=== PATIENT | female | born 1965 | race Caucasian/White ===

== ENCOUNTER → 2017-02-17 | Outpatient (CLI) | payer OTHER | LOC: RAD 17:12 | DX: M47.816 Spondylosis without myelopathy or radiculopathy, lumbar region (principal); M54.30 Sciatica, unspecified side; N20.0 Calculus of kidney; M54.9 Dorsalgia, unspecified ==

== ENCOUNTER → 2019-08-08 | Outpatient (CLI) | payer OTHER | LOC: MRI 08:58 | DX: M47.816 Spondylosis without myelopathy or radiculopathy, lumbar region (principal); M51.26 Other intervertebral disc displacement, lumbar region; M48.061 Spinal stenosis, lumbar region without neurogenic claudication; M48.07 Spinal stenosis, lumbosacral region ==

== ENCOUNTER → 2019-08-16 | Outpatient (CLI) | payer OTHER ==
[~2019-08-16] VITALS: Ht 167.6 cm; Wt 80.7 kg
[~2019-08-16] MED LIST: IBUPROFEN 200200 M1 PO; LYRICA 50 MG50 MG PO; NORCO 5-325 TA1 EAC1 PO
[2019-08-16 14:27] VITALS: BP 126/77
--- NOTE | 2019-08-16 14:34 | NUR ---
Pain Clinic Assessment: 1. History of Osteoarthritis: SPINE History of Rheumatoid Arthritis: Not Applicable 2. Height: 5 ft. 6 in. 167.6 cm. Weight: 178.0 lb. oz. 80.740 kg. Patient's BMI: 28.7 3. Vital Signs: BP: 126/77 Pulse: 88 Resp: 16 Temp: 02 Sat: 100 ECG Mon: 4. Pain Intensity: 7 5. Fall Risk: Dizziness: N Needs help standing or walking: N Fallen in the last 3 months: Y Fall risk comments: 6. Patient on Blood Thinner: None 7. History of Hypertension: N 8. Opioid Therapy greater than 6 weeks: N Opiate Contract Signed: 9. Risk Assessment Tool Provided: 0-low 10. Functional Assessment Tool: 11. Recreational Drug Use: Never Drug Type: Tobacco Use: Never Smoker Tobacco Type: Amount or Packs/day: How Many Years: Alcohol Use: Yes Frequency: Weekly Quant: 1
--- NOTE | 2019-08-23 07:46 | HPC ---
[facility] [address] [address] PAIN MANAGEMENT CONSULTATION Name: CHARLY GILES Room #: REG Kirt Ryder#: [id number] Admission: 08/16/19 Attend Phys: Cliff Rucker DO Discharge: Date of : 63 Report #: [id number] THIS REPORT FOR: //name// CC: Cliff Hodges DATE OF SERVICE: 08/16/2019 CHIEF COMPLAINT: Low back pain, right lower extremity pain with paresthesias. HISTORY OF PRESENT ILLNESS: As you know, the patient is a very pleasant 54-year-old female with longstanding history of low back pain, right lower extremity pain with paresthesias. The patient states her pain has been on and off for about 2 years, but had noted an increasing pain that began in February 2018. Unfortunately, her symptoms have progressively worsened. She has "just been putting up with it" but unfortunately her symptoms have progressed to the point where her pain is now interfering with sleep and daily activities. She sought evaluation through her nurse practitioner, Tanja Marley, who has then sent the patient for imaging of the lumbar spine. The findings were such the patient was then referred to our clinic to discuss options for treatment. The patient indicates pain is steady. She describes the pain as burning, stabbing, numbness and tingling when describing her symptoms. She places current pain score 7/10, daily average is 7/10, worst pain has been 9/10. The patient states that lying down at night tends to exacerbate symptoms as does sitting in specific chairs as well as driving her vehicle. She states that standing up improves pain. She has been referred to our service to discuss treatment options for suspected lumbar radiculopathy. PAST MEDICAL HISTORY: 1. Basal cell carcinoma. 2. Intermittent low back pain. PAST SURGICAL HISTORY: Excision of skin cancer. SOCIAL HISTORY: The patient denies tobacco, IV or illicit drug use. Admits to an occasional alcohol beverage. She is currently employed as a complex human resources manager. She is working, not receiving workmen's compensation or is she trying to obtain disability benefits. She is not in litigation in regards to pain. She is unaccompanied at today's visit. REVIEW OF SYSTEMS: Positive for wearing corrective eyewear, nocturia, incontinence and dribbling to urine, numbness and tingling involving the left lower extremity and chronic low back pain. All other review of systems negative per 12-point review of systems other than those listed in history of present [facility] [address] [place] [address] PAIN MANAGEMENT CONSULTATION Name: CHARLY GILES Room #: REG CLI [facility].#: [id number] Admission: 08/16/19 Attend Phys: Cliff Rucker DO Discharge: Date of : 63 Report #: [id number] illness. Pain impact score 41/70 indicating moderate interference of daily activities secondary to pain. ALLERGIES: No known drug allergies. CURRENT MEDICATIONS: Hydrocodone/acetaminophen 5/325 one tab every 4 hours p.r.n. for pain, ibuprofen 200 mg once a day. IMAGING: MRI of the lumbar spine obtained 08/08/2019 shows L1-2 mild posterior disk changes with fluid in the facet joints. No central canal neural foraminal stenosis. At L2-3; mild generalized disk bulge with moderate to severe hypertrophic facet degenerative changes, no significant central canal neural foraminal stenosis. L3-4; mild generalized disk bulge, severe hypertrophic posterior facet degenerative changes and ligamentum flavum hypertrophy, no central canal neural foraminal narrowing. L4-5; mild generalized disk bulge, severe hypertrophic posterior facet degenerative changes, no significant central canal neural foraminal stenosis. L5-S1; generalized disk bulge eccentric towards the right, moderate to severe hypertrophic changes, mild to moderate right-sided neural foraminal narrowing. PHYSICAL EXAMINATION: VITAL SIGNS: Blood pressure 126/77, pulse 88, respiratory rate 16 and unlabored. The patient is 100% on room air. Height 5 feet 6 inches tall, weight 178 pounds, BMI calculated 28.7. GENERAL: Well-developed, well-nourished, well-hydrated 54-year-old female appearing stated age, placing current pain score 7/10. HEENT: Normocephalic, atraumatic. Pupils equal, round and reactive to light. Extraocular muscles are intact. Sclerae nonicteric without injection. NEUROLOGIC: Cranial nerves 2-12 grossly intact. Speech is fluent. The patient deemed an excellent historian. LUNGS: Clear. No wheezes, rhonchi. No rales. CARDIOVASCULAR: Regular. No appreciable gallop, no rub. ABDOMEN: Soft, nontender, nondistended. EXTREMITIES: Show no clubbing, no cyanosis, and no edema. MUSCULOSKELETAL: Lower extremity strength appears symmetrical 5/5. Slight giveaway strength noted on the left when compared to the right. This is noted with hip flexion as well as knee extension. Muscle bulk and tone is equal and symmetrical in comparing left lower extremity to right. Deep tendon reflexes are 2+/4 at patella and 2+/4 at the Achilles and symmetrical. She appears to be intact to light touch from L1 through S2 dermatomes. Seated straight leg raising negative. Supine straight leg raising positive on the left. Lamine's test is negative. Modified Gaenslen's is met with axial back pain, no radiation of symptoms. Lumbar provocation testing including extension, rotation, tend to exacerbate symptoms in the low back. No radiation of symptoms. Forward flexion [facility] [address] [place] [address] PAIN MANAGEMENT CONSULTATION Name: CHARLY GILES Room #: REG CLKirt Ryder#: [id number] Admission: 08/16/19 Attend Phys: Cliff Rucker DO Discharge: Date of : 63 Report #: [id number] tends to improve axial back symptoms. ASSESSMENT: 1. Symptomatic lumbar radiculopathy. 2. Displacement of lumbar intervertebral disk with radiculopathy. 3. Lumbosacral spondylosis with radiculopathy. 4. Neural foraminal stenosis of the lumbar spine. 5. Lumbar degeneration. PLAN: Based on today's physical exam and the history the patient has provided, the description the patient uses in regards to pain as well as location of symptoms and the descriptors she uses in regards to pain, likely source of the patient's symptoms is a lumbar radiculopathy. We reviewed with the patient her MRI, which does show foraminal changes at the L5-S1 level, correlating to the distribution of symptoms, the patient is experiencing radiating down the right leg all the way to the great toe. This would follow a typical dermatomal distribution. We discussed with the patient the treatment options available for lumbar radiculopathy today, the following was discussed with the patient on treatment course. We discussed physical therapy, stretching exercises and core strengthening techniques. We discussed medication management using neuropathic pain medications and a possible nonsteroidal anti-inflammatory. We discussed lumbar epidural injection under fluoroscopic guidance to address lumbar radicular symptoms. We also discussed spinal cord stimulator and ultimately surgical options. After reviewing the risks and benefits of all the proposed treatment options, the patient chose to move forward with a lumbar epidural injection under fluoroscopic guidance. The patient was advised that due to third alliance party payer restrictions, authorization had to be obtained before the patient could undergo a lumbar epidural injection. Authorization could take anywhere from 4-7 working days. We will begin this process immediately. We will contact the patient once this authorization has been completed, so she can return to undergo the first in a series of lumbar epidural injections. We did provide the patient a tentative return appointment. If we were able to gain the authorization prior to that time, we will adjust the appointment to an appropriate time. The patient will be started on Lyrica 50 mg dose. I have given her samples of the medication to initiate today. Recommend about 2 hours before bedtime and with this medication, she will continue for 3 nights. No side effects of sleepiness, disorientation, confusion and mental slowing and no improvement in symptoms, double the dose to 100 mg. If improvements in symptoms are noted at 50, stabilize that dose and continue the medication. Again, if no improvement in symptoms and no side effects, escalate to 100 mg dose. She was given enough samples to titrate to that level and to continue the medication for the next [address] [address] PAIN MANAGEMENT CONSULTATION Name: CHARLY GILES Room #: REG ISABEL Soler#: [id number] Admission: 08/16/19 Attend Phys: Cliff Rucker DO Discharge: Date of : 63 Report #: [id number] week to week and a half. We will see the patient back in followup visit once we have achieved authorization for her to undergo a lumbar epidural injection. We will keep you apprised of her progress as we obtain this authorization. We wish to thank nurse practitioner, Tanja Marley for the referral of this patient to our clinic. We will keep you apprised of response to treatment as we address lumbar radicular symptoms. Again, we wish to thank you for the opportunity to see this patient in consultation. <ELECTRONICALLY SIGNED> By: Cliff Rucker DO 08/23/1947 1555 5 Cliff Rucker DO /nt
== END ==
LOC: PAIN 06:53
DX: M51.16 Intervertebral disc disorders with radiculopathy, lumbar region (principal); M48.062 Spinal stenosis, lumbar region with neurogenic claudication; M47.27 Other spondylosis with radiculopathy, lumbosacral region

== ENCOUNTER → 2019-08-30 | Outpatient (CLI) | payer OTHER ==
[~2019-08-30] VITALS: Ht 167.6 cm; Wt 81.6 kg
[2019-08-30 09:08] VITALS: BP 126/84
--- NOTE | 2019-08-30 09:10 | NUR ---
Pain Clinic Assessment: 1. History of Osteoarthritis: SPINE History of Rheumatoid Arthritis: Not Applicable 2. Height: 5 ft. 6 in. 167.6 cm. Weight: 180.0 lb. oz. 81.648 kg. Patient's BMI: 29.1 3. Vital Signs: BP: 126/84 Pulse: 75 Resp: 16 Temp: 02 Sat: 99 ECG Mon: 4. Pain Intensity: 7 5. Fall Risk: Dizziness: N Needs help standing or walking: N Fallen in the last 3 months: N Fall risk comments: 6. Patient on Blood Thinner: None 7. History of Hypertension: N 8. Opioid Therapy greater than 6 weeks: N Opiate Contract Signed: 9. Risk Assessment Tool Provided: 0-low 10. Functional Assessment Tool: 41 11. Recreational Drug Use: Never Drug Type: Tobacco Use: Never Smoker Tobacco Type: Amount or Packs/day: How Many Years: Alcohol Use: Yes Frequency: Quant:
--- NOTE | 2019-09-06 08:01 | HPC ---
[address] [address] PAIN MANAGEMENT CONSULTATION Name: CHARLY GILES Lopez Room #: REG [facility] Ryder#: [id number] Admission: 08/30/19 Attend Phys: Cliff Rucker DO Discharge: Date of : 63 Report #: [id number] THIS REPORT FOR: //name// CC: Cliff Hodges DATE OF SERVICE: 08/30/2019 REFERRING NURSE PRACTITIONER: SAHIL Salinas CHIEF COMPLAINT: Low back pain and right lower extremity pain with paresthesias. HISTORY OF PRESENT ILLNESS: As you know, the patient is a very pleasant 54-year-old female with longstanding history of low back pain and right lower extremity pain with paresthesias. The patient states her pain began about 2 years ago with waxing and waning features. In 02/2018, her pain began to intensify. Unfortunately, her symptoms have not improved and continued to progress. She was seen by her primary care team, who referred the patient over to our clinic to trial an epidural injection under fluoroscopic guidance. We saw the patient on 08/16/2019, where she was diagnosed with a symptomatic lumbar radiculopathy secondary to the displacement of a lumbar intervertebral disk. We began the authorization process to have the patient undergo the procedure. We have completed this authorization process and the patient is now prepared to undergo first in a series of lumbar epidural injections. She is placing pain today at a level of 7/10. States her pain is burning, stabbing, numbness, and tingling when describing pain, exacerbated with walking, standing, and lying down, and improves with repositioning and rest. She returns today in followup visit to undergo first in a series of lumbar epidural injections under fluoroscopic guidance. ALLERGIES: No known drug allergies. CURRENT MEDICATIONS: Hydrocodone/acetaminophen 5/325 one tablet every 4 hours p.r.n. for pain and ibuprofen 200 mg once a day. SOCIAL HISTORY: The patient denies tobacco, IV or illicit drug use. Admits to occasional alcohol beverage. She is employed and unaccompanied today. IMAGING: No new imaging available. PHYSICAL EXAMINATION: VITAL SIGNS: Blood pressure 126/84, pulse is 75, and respiratory rate 16 and unlabored. The patient is 99% on the room air. Height 5 feet 6 inches tall, weight 180 pounds, and BMI calculated 29.1. [place] [address] PAIN MANAGEMENT CONSULTATION Name: CHARLY GILES Room #: REG CLKirt Ryder#: [id number] Admission: 08/30/19 Attend Phys: Cliff Rucker DO Discharge: Date of : 63 Report #: [id number] GENERAL: Well-developed, well-nourished, and well-hydrated 54-year-old female appearing stated age, pain is rated today at 7/10. HEENT: Normocephalic and atraumatic. Pupils are equal, round, and reactive to light. EXTREMITIES: Show no clubbing, no cyanosis, and no edema. MUSCULOSKELETAL: Lower extremity strength equal and symmetrical, 5/5. Muscle bulk and tone equal and symmetrical on comparing the left lower extremity to right. Deep tendon reflexes, 2+/4, patella and Achilles. Seated straight leg raising is negative. Supine straight leg raising is positive on the left. ASSESSMENT: 1. Symptomatic lumbar radiculopathy. 2. Displacement of lumbar intervertebral disk with radiculopathy. 3. Lumbosacral spondylosis with radiculopathy. 4. Neural foraminal stenosis of the lumbar spine. 5. Chronic intractable pain. PLAN: 1. The patient returns today in followup visit to undergo first in the series of lumbar epidural injections under fluoroscopic guidance. We have received the authorization for the patient to undergo the procedure today. She has been advised of the risks and benefits of the procedure. These risks include, but are not necessarily limited to, bleeding, bruising, infection, worsening of pain, no relief of pain, also risk of temporary or permanent muscle weakness, temporary or permanent nerve damage, possible paralysis, post-dural puncture headache, and . The patient states understood and wished to proceed. 2. No medication changes made at today's visit. The patient will continue current medical therapy as prior prescribed. 3. We will see the patient back in followup visit on an as needed basis for possible next in the series of lumbar epidural injections. We have made her an appointment back with our clinic in 30 days to discuss the efficacy. PROCEDURE NOTE DESCRIPTION OF PROCEDURE: L5-S1 right parasagittal epidural steroid injection under fluoroscopic guidance. This is the first procedure of the first series that the patient is undergoing. After obtaining written consent, the patient was taken back to the fluoroscopy suite, placed in a prone position with pillow under the abdomen to decrease lumbar lordosis. The skin overlying the lumbosacral area was then prepped and draped in aseptic fashion. The L5-S1 vertebral interspace was then identified by AP fluoroscopy. The skin and subcutaneous tissue overlying the target site of injection was anesthetized with 3 mL 1% lidocaine. [address] [address] PAIN MANAGEMENT CONSULTATION Name: CHARLY GILES Room #: REG CLKirt Soler#: [id number] Admission: 08/30/19 Attend Phys: Cliff Rucker DO Discharge: Date of : 63 Report #: [id number] A 20-gauge, 3.5 inch Tuohy needle was then advanced under fluoroscopic guidance towards the epidural space using a right parasagittal approach. The epidural space was identified using loss of resistance to air technique. After negative aspiration for heme or cerebrospinal fluid, a total of 1 mL of Omnipaque was injected. A lumbar epidurogram was confirmed using both AP and lateral fluoroscopy. After negative aspiration for heme or cerebrospinal fluid, 5 mL of a solution containing 2 mL 40 mg/mL, 80 mg total triamcinolone along with 3 mL lidocaine 1% was injected in increments. Contrast spread was noted post-epidural space. The needle was then retracted approximately half way and needle tract flushed with 1 mL of 1% lidocaine. Needle was then removed. There were no apparent sensory or motor deficits in the lower extremity following the procedure. A sterile bandage was placed over the injection site. The heart rate, pulse, oximetry and blood pressure were continuously monitored after the procedure. There were no apparent complications. The patient tolerated the procedure well and was carefully escorted to the recovery room in stable condition. There were no apparent complications. After meeting discharge criteria, the patient was then discharged home. <ELECTRONICALLY SIGNED> By: Cliff Rucker DO 09/06/19 0801 [id number] [id number] Cliff Rucker, DO /nt
== END | disposition home or self-care (01) ==
LOC: PAIN 06:51
DX: M54.5 Low back pain (principal); M51.16 Intervertebral disc disorders with radiculopathy, lumbar region; M47.27 Other spondylosis with radiculopathy, lumbosacral region; M48.061 Spinal stenosis, lumbar region without neurogenic claudication; G89.29 Other chronic pain; Z79.891 Long term (current) use of opiate analgesic; Z98.890 Other specified postprocedural states

== ENCOUNTER → 2019-09-13 | Outpatient (CLI) | payer OTHER ==
[~2019-09-13] VITALS: Ht 167.6 cm; Wt 81.9 kg
[2019-09-13 10:45] VITALS: BP 118/77
--- NOTE | 2019-09-13 10:55 | NUR ---
Pain Clinic Assessment: 1. History of Osteoarthritis: SPINE History of Rheumatoid Arthritis: Not Applicable 2. Height: 5 ft. 6 in. 167.6 cm. Weight: 180.6 lb. oz. 81.920 kg. Patient's BMI: 29.2 3. Vital Signs: BP: 118/77 Pulse: 65 Resp: 16 Temp: 02 Sat: 100 ECG Mon: 4. Pain Intensity: 6 5. Fall Risk: Dizziness: N Needs help standing or walking: N Fallen in the last 3 months: N Fall risk comments: 6. Patient on Blood Thinner: None 7. History of Hypertension: N 8. Opioid Therapy greater than 6 weeks: N Opiate Contract Signed: 9. Risk Assessment Tool Provided: 0-low 10. Functional Assessment Tool: 41 11. Recreational Drug Use: Never Drug Type: Tobacco Use: Never Smoker Tobacco Type: Amount or Packs/day: How Many Years: Alcohol Use: Yes Frequency: Quant:
--- NOTE | 2019-09-20 12:48 | HPC ---
[facility] [place] [address] PAIN MANAGEMENT CONSULTATION Name: CHANCHARLY R Room #: REG ISABEL Ryder#: [id number] Admission: 09/13/19 Attend Phys: Cliff Rucker DO Discharge: Date of : 63 Report #: [id number] THIS REPORT FOR: //name// CC: Cliff Hodges DATE OF SERVICE: 09/13/2019 CHIEF COMPLAINT: Low back pain, right lower extremity pain with paresthesias. HISTORY OF PRESENT ILLNESS: As you know, patient is a very pleasant 54-year-old female with longstanding history of low back pain, right lower extremity pain with paresthesias. The patient states pain began approximately 2 years ago and has been waxing and waning in its presentation since that time. We saw the patient in consultation 08/16/2019 where we discussed treatment options. She returned to 08/30/2019 having received authorization to undergo a lumbar epidural injection under fluoroscopic guidance. She underwent that procedure that date and time. She returns today with pain level of 6/10. States her pain is burning, stabbing, numbness and tingling. She reports no significant pain improvement with the epidural injection. She returns to discuss options for treatment. She states pain mainly is now in the low back, radiates down the right leg. Pain has been unchanged with the epidural injection. She returns to make adjustments in medication management or discuss other treatment options. ALLERGIES: No known drug allergies. CURRENT MEDICATIONS: Hydrocodone/acetaminophen 5/325 one tab every 4 hours p.r.n. for pain, ibuprofen 200 mg 3-4 times a day. SOCIAL HISTORY: The patient denies tobacco, IV or illicit drug use. Admits to occasional alcohol beverage. She is employed, working, not receiving workmen's compensation, unaccompanied today. IMAGING: No new imaging available. PHYSICAL EXAMINATION: VITAL SIGNS: Blood pressure 118/77, pulse 65, respiratory rate 16 and unlabored. The patient is 100% on room air. Height 5 feet 6 inches tall, weight 280.6 pounds, BMI calculated 29.2. GENERAL: Well-developed, well-nourished, well-hydrated 54-year-old female appearing stated age, pain is rated today around 6/10. HEENT: Normocephalic, atraumatic. Pupils equal, round, reactive to light. EXTREMITIES: Show no clubbing, no cyanosis, no edema. MUSCULOSKELETAL: Lower extremity strength remains symmetrical 5/5. She has no difficulty standing from a seated position. There is slight [place] [address] PAIN MANAGEMENT CONSULTATION Name: CHARLY GILES Room #: REG [facility]#: [id number] Admission: 09/13/19 Attend Phys: Cliff Rucker DO Discharge: Date of : 63 Report #: [id number] noted on the left when compared to the right with hip flexion, knee extension. Seated straight leg raising is negative. Supine straight leg raising is positive. Lamine's test negative. ASSESSMENT: 1. Symptomatic lumbar radiculopathy. 2. Displacement of a lumbar intervertebral disk with radiculopathy. 3. Lumbosacral spondylosis with radiculopathy. 4. Neural foraminal stenosis of the lumbar spine. 5. Lumbar degeneration. 6. Chronic intractable pain. PLAN: 1. The patient returns today in followup visit having noted no significant pain improvement with the epidural injection. Unfortunately, it provided no transient or a long-term benefit. We would recommend adjusting medications at this point as she saw no improvement with more aggressive treatment options. The patient is amenable to trial medication management. She is concerned about some of the medications given the side effects, specifically the neuropathic pain medications. The most useful agents for her ongoing pain, but do have side effects of sleepiness, disorientation, confusion, mental slowing. 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 We are agreeable to adjust medication today, the following was prescribed. 2. The patient was given a titration pack for Gralise, this medication is to be used as directed. We will start the Gralise at 300 mg dose and titrate as directed. We are utilizing Gralise as it is a long-acting form of gabapentin, which will provide 24-hour coverage without the side effects of immediate release gabapentin. 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 The patient will titrate the Gralise to a level of efficacy versus side effects. She is to titrate until which time she receives benefit in pain or side effects she cannot tolerate. If she reaches side effects, she cannot tolerate reduce to the dose prior, contact our clinic. If she does reach an efficacious level contact our clinic, so a full prescription can be provided. 3. We will see the patient back in followup visit in approximately 15 days that will be the end of her Gralise titration pack and we can discuss efficacy at that time if she has not contacted other clinic before. 4. We wish to thank nurse practitioner, Tanja Marley for the referral of the patient in our clinic. We will keep you apprised of response to treatment. <ELECTRONICALLY SIGNED> By: Cliff Rucker DO 09/20/19 8023 [id number] Cliff Rucker DO /nt
== END ==
LOC: PAIN 06:53
DX: M51.16 Intervertebral disc disorders with radiculopathy, lumbar region (principal); M47.27 Other spondylosis with radiculopathy, lumbosacral region; G89.4 Chronic pain syndrome; Z79.899 Other long term (current) drug therapy

== ENCOUNTER → 2019-11-11 | Outpatient (CLI) | payer OTHER | LOC: RAD 15:18 | DX: Z12.31 Encounter for screening mammogram for malignant neoplasm of breast (principal); E78.00 Pure hypercholesterolemia, unspecified; I25.10 Atherosclerotic heart disease of native coronary artery without angina pectoris ==

== ENCOUNTER → 2019-11-29 | Outpatient (CLI) | payer BC, OTHER ==
[~2019-11-29] VITALS: Ht 167.6 cm; Wt 83.2 kg
[~2019-11-29] MED LIST changes: +GRALISE600 MG PO; +HORIZANT600 MG PO
[2019-11-29 11:09] VITALS: BP 112/83
--- NOTE | 2019-11-29 11:16 | NUR ---
Pain Clinic Assessment: 1. History of Osteoarthritis: SPINE History of Rheumatoid Arthritis: Not Applicable 2. Height: 5 ft. 6 in. 167.6 cm. Weight: 183.4 lb. oz. 83.190 kg. Patient's BMI: 29.6 3. Vital Signs: BP: 112/83 Pulse: 75 Resp: 18 Temp: 02 Sat: 97 ECG Mon: 4. Pain Intensity: 5 5. Fall Risk: Dizziness: N Needs help standing or walking: N Fallen in the last 3 months: N Fall risk comments: 6. Patient on Blood Thinner: None 7. History of Hypertension: N 8. Opioid Therapy greater than 6 weeks: N Opiate Contract Signed: 9. Risk Assessment Tool Provided: 0-low 10. Functional Assessment Tool: 11. Recreational Drug Use: Never Drug Type: Tobacco Use: Never Smoker Tobacco Type: Amount or Packs/day: How Many Years: Alcohol Use: Yes Frequency: Quant:
--- NOTE | 2019-11-30 09:45 | HPC ---
[facility] [address] [address] PAIN MANAGEMENT CONSULTATION Name: CHANCHARLY R Room #: REG ISABEL Soler#: [id number] Admission: 11/29/19 Attend Phys: Raven Alves Discharge: Date of : 63 Report #: [id number] THIS REPORT FOR: //name// CC: Raven RODRIGUEZ MICHAELA DO Tanja BARTLETTCHAVA MARTINEZ DATE OF SERVICE: 11/29/2019 CHIEF COMPLAINT: Low back pain, right lower extremity pain and paresthesias. HISTORY OF PRESENT ILLNESS: This is a very pleasant 54-year-old female with a history of low back pain and right lower extremity pain and paresthesias. She reports that the medication for her aunt that she is currently taking is beneficial in controlling some of her numbness and tingly in her right leg, but she is unable to tolerate 2 tablets a day because it does have significant side effects making her too dizzy and foggy throughout the day. She has recently switched insurance companies and is wondering if she is able to go back to Gralise taking two tablets, a total of 1200 mg at dinner time, she felt that she had less side effects and better pain control on taking that medication. She had stopped this medication due to cost issues and had been transitioned to Horizont, she is wanting to try the Gralise again, hopefully will be less expensive with her new insurance. The patient does report a pain score 5/10 today. It is located in her lumbar spine that does radiate down her right leg. Occasionally, she will have left lower back pain. Her pain is described as a burning, stabbing, numbness, tingling pain, worse with sitting, driving and lying down. She feels that medication and exercise as well as walking are beneficial in controlling her pain. ALLERGIES: No known drug allergies. CURRENT LIST OF MEDICATION: Horizont 600 mg at dinner. PQRS: 1. She has osteoarthritic changes in her lumbar spine. Denies any rheumatoid arthritis. 2. Height is 5 feet 6 inches, weight is 180, BMI is 29. 3. Vital signs 118/77, pulse is 65, respirations 16, oxygen sat is 100. 4. Pain score 6/10. 5. Denies dizziness, does not need help walking or standing, has not fallen in the last 3 months. 6. The patient is not on any blood thinners or medicine for hypertension. She is not taking any opioids. Her risk assessment tool is low. Functional [facility] [address] [place] [address] PAIN MANAGEMENT CONSULTATION Name: CHARLY GILES Room #: REG CLI [facility]#: [id number] Admission: 11/29/19 Attend Phys: Raven Alves Discharge: Date of : 63 Report #: [id number] assessment is . 7. Recreational drug use, she denies. She is not a smoker and occasionally drinks alcohol. PHYSICAL EXAMINATION: GENERAL: This is a well-developed, well-nourished, well-hydrated 54-year-old female who appears her stated age, placing her current pain score today at 6/10. HEENT: Normocephalic, atraumatic. Pupils equal, round and reactive to light. EXTREMITIES: No clubbing, no cyanosis, no edema. MUSCULOSKELETAL: She moves easily from the sitting to standing position. Her lower extremity strength is symmetrical at 5/5, slight giveaway in strength on her left extremity when compared to the right. Seated straight leg raising is negative. Lamine's test is negative, does have numbness and tingly following the L5-S1 dermatomal distribution. ASSESSMENT: 1. Symptomatic lumbar radiculopathy. 2. Displacement of lumbar intervertebral disk with radiculopathy. 3. Lumbosacral spondylosis with radiculopathy. 4. Neural foraminal stenosis of the lumbar spine. 5. Chronic intractable pain. PLAN: 1. We discussed treatment options with the patient today. The patient has recently changed insurance and is wondering about going back to Gralise. She found that medication very beneficial in controlling her pain. She has limited side effects, which she has been having with her Horizont. She is only able to take that medication once a day due to these limiting side effects, especially of fogginess and slightly dizzy during the day. We will try to utilize Gralise long-acting gabapentin at 600 mg 2 tablets at dinner. The patient was instructed to start at one tablet then increase back to two. Hopefully, her new insurance company will allow this medication. If they we will not, we will continue her on the Horizant 600 mg at dinner. 2. We did discuss a lumbar epidural steroid injection. Again, patient did have minimal improvement. We discussed that it may be warranted to try this injection again to see if she does have some improvement with a slightly different approach. The patient is agreeable to try in the future if the Gralise is ineffective. 3. The patient also encouraged to continue her exercises that she learned in physical therapy to help strengthen her lower extremity, which she feels is slightly weaker than the left. [facility] [address] [place] [address] PAIN MANAGEMENT CONSULTATION Name: CHARLY GILES Room #: MAGO TobinGinnaLopezGinna#: [id number] Admission: 11/29/19 Attend Phys: Raven Alves Discharge: Date of : 63 Report #: [id number] 4. The patient is seen in collaboration with Dr. Cliff Rucker. She will call for an appointment as needed. <ELECTRONICALLY SIGNED> By: Raven Alves 11/30/19 0945 [id number] Raven Alves /rosa maria
== END ==
LOC: PAIN 06:45
DX: M51.16 Intervertebral disc disorders with radiculopathy, lumbar region (principal); M47.27 Other spondylosis with radiculopathy, lumbosacral region; M48.061 Spinal stenosis, lumbar region without neurogenic claudication; M79.604 Pain in right leg; G89.4 Chronic pain syndrome

== ENCOUNTER → 2020-03-27 | Outpatient (CLI) | payer BC, OTHER ==
[~2020-03-27] VITALS: Ht 167.6 cm; Wt 84.3 kg
[~2020-03-27] MED LIST changes: +NEURONTIN 300M300 M2 PO
[2020-03-27 09:43] VITALS: BP 128/83
--- NOTE | 2020-03-27 10:05 | NUR ---
Pain Clinic Assessment: 1. History of Osteoarthritis: SPINE History of Rheumatoid Arthritis: Not Applicable 2. Height: 5 ft. 6 in. 167.6 cm. Weight: 185.8 lb. oz. 84.278 kg. Patient's BMI: 30.0 3. Vital Signs: BP: 128/83 Pulse: 76 Resp: 16 Temp: 02 Sat: 100 ECG Mon: 4. Pain Intensity: 3 5. Fall Risk: Dizziness: N Needs help standing or walking: N Fallen in the last 3 months: N Fall risk comments: 6. Patient on Blood Thinner: None 7. History of Hypertension: N 8. Opioid Therapy greater than 6 weeks: N Opiate Contract Signed: 9. Risk Assessment Tool Provided: 0-low 10. Functional Assessment Tool: 11. Recreational Drug Use: Never Drug Type: Tobacco Use: Never Smoker Tobacco Type: Amount or Packs/day: How Many Years: Alcohol Use: Yes Frequency: Special Occasions Quant: 1
--- NOTE | 2020-03-28 12:28 | HPC ---
[facility] [address] [place] [address] PAIN MANAGEMENT CONSULTATION Name: CHARLY GILES [id number] Admission: 03/27/20 Attend Phys: Raven Alves Discharge: Date of : 63 Report #: [id number] THIS REPORT FOR: cc: Tanja Marley DNP, Mary E. DNP Hocker,Raven BOURNE ~ CC: JENNIFER JENNINGS DO DATE OF SERVICE: 03/27/2020 CHIEF COMPLAINT: Low back pain, right lower extremity pain and paresthesias. HISTORY OF PRESENT ILLNESS: This is a very pleasant 54-year-old female who continues to complain of low back pain, right lower extremity pain and paresthesias. She reports today that she is tolerating gabapentin 300 mg once a day. If she had tried to increase this to twice a day, she becomes too dizzy and did not tolerate it throughout the day, so she takes her medicine in the evening. She had trialed Gralise in the past, it was not covered by her insurance company, so she had transitioned back to gabapentin. Today, she is reporting her pain score of 3/10. She states it is a burning, constant, aching, shooting pain that is worse with riding and driving the car as well as lying down. She feels when she is active at work and standing and walking is beneficial, though she does report she recently mowed the lawn and did have increased pain for several days. Today, she would like refills of her gabapentin. ALLERGIES: No known drug allergies. CURRENT LIST OF MEDICATIONS: Gabapentin 300 mg daily and Advil 400 mg at bedtime. PQRS: 1. She has arthritic changes in her lumbar spine. Denies any rheumatoid arthritis. 2. Height is 5 feet 6 inches, weight is 185, BMI is 30. 3. Vital signs 128/83, pulse is 76, respirations 16, oxygen sat is 100. 4. Pain score is 3/10. 5. Denies dizziness, does not need help walking or standing, has not fallen in the last 3 months. 6. The patient is not on any blood thinners or medicines for hypertension. 7. She is not on any opioids. Her functional assessment is 32/70. Risk assessment is 0. 8. Recreational drug use, she denies. She is not a smoker and occasionally drinks alcohol. PHYSICAL EXAMINATION: [facility] [address] [place] [address] PAIN MANAGEMENT CONSULTATION Name: CHARLY IGLES Room #: REG ISABEL Soler#: [id number] Admission: 03/27/20 Attend Phys: Raven Alves Discharge: Date of : 63 Report #: [id number] GENERAL: This is a well-developed, well-nourished, well-hydrated 54-year-old female who appears her stated age, placing her current pain score at 3/10 today. She is a good historian. HEENT: Normocephalic, atraumatic. Pupils equal, round and reactive to light. She is wearing a mask. EXTREMITIES: No clubbing, no cyanosis, no edema. MUSCULOSKELETAL: Seated straight leg raising is negative. She moves easily from the seated position to standing. Her lower extremity strength remains symmetrical at 5/5. Lamine test is negative. ASSESSMENT: 1. Symptomatic lumbar radiculopathy. 2. Displacement of lumbar intervertebral disk with radiculopathy. 3. Lumbosacral spondylosis with radiculopathy. 4. Neural foraminal stenosis of the lumbar spine. 5. Chronic intractable pain. PLAN: 1. We discussed treatment options with the patient today. The patient finds the gabapentin beneficial, taking 1 tablet at night, though she does experience increase in numbness and tingling and pain while she is sleeping. We did discuss possibly increasing to 2 tablets at bedtime, but to trial this when she will not be working for several days. The patient states that she will trial 600 mg over the weekend. I explained to the patient if she is able to tolerate this and the pain is decreased, she may continue this or we could possibly trial a 400 mg tablet that was be a slight increase over her 300. The patient will call to report how she is doing with the 600 mg at bedtime. Scripts sent electronically for 60 tablets of gabapentin 300 mg with 5 additional refills. 2. We did again discuss briefly a lumbar epidural steroid injection. The patient is still considering this, though she had minimal improvement in the past. She feels that when her pain has increased significantly, she would like to try this option again. 3. The patient is seen in collaboration today with Dr. Jennifer Jennings. The patient will call for an appointment for an epidural as needed and to report her gabapentin response. <ELECTRONICALLY SIGNED> By: Raven Alves 03/28/20 1228 [id number] Raven Alves /rosa maria
== END ==
LOC: PAIN 06:53
DX: M47.27 Other spondylosis with radiculopathy, lumbosacral region (principal); R20.2 Paresthesia of skin; M79.604 Pain in right leg; M51.16 Intervertebral disc disorders with radiculopathy, lumbar region; M48.061 Spinal stenosis, lumbar region without neurogenic claudication; G89.29 Other chronic pain; Z79.899 Other long term (current) drug therapy

== ENCOUNTER → 2021-04-09 | Outpatient (CLI) | payer BC, OTHER ==
[~2021-04-09] VITALS: Ht 167.6 cm; Wt 85.6 kg
[2021-04-09 14:57] VITALS: BP 126/76
--- NOTE | 2021-04-09 15:03 | NUR ---
Pain Clinic Assessment: 1. History of Osteoarthritis: SPINE History of Rheumatoid Arthritis: Not Applicable 2. Height: 5 ft. 6 in. 167.6 cm. Weight: 188.8 lb. oz. 85.639 kg. Patient's BMI: 30.5 3. Vital Signs: BP: 126/76 Pulse: 99 Resp: 16 Temp: 02 Sat: 99 ECG Mon: 4. Pain Intensity: 7 5. Fall Risk: Dizziness: N Needs help standing or walking: N Fallen in the last 3 months: N Fall risk comments: 6. Patient on Blood Thinner: None 7. History of Hypertension: N 8. Opioid Therapy greater than 6 weeks: N Opiate Contract Signed: 9. Risk Assessment Tool Provided: 0-low 10. Functional Assessment Tool: 11. Recreational Drug Use: Never Drug Type: Tobacco Use: Never Smoker Tobacco Type: Amount or Packs/day: How Many Years: Alcohol Use: Yes Frequency: Monthly Quant: 1
--- NOTE | 2021-04-10 08:22 | HPC ---
[facility] [place] [address] PAIN MANAGEMENT CONSULTATION Name: CHARLY GILES Room #: REG ISABEL Siddharth.#: [id number] Admission: 04/09/21 Attend Phys: Cliff Rucker DO Discharge: Date of : 63 Report #: [id number] THIS REPORT FOR: cc: Tanja Marley DNP, Mary E. DNP Johnson, James E. DO ~ DOC #: [id number] cc: SAHIL Salinas Amanda Hocker, GORGE Rucker DO DATE OF SERVICE: 04/09/2021 DATE OF SERVICE: 04/09/2021 CHIEF COMPLAINT: Low back pain, right lower extremity pain with paresthesias. HISTORY OF PRESENT ILLNESS: As you know, the patient is a very pleasant 55-year-old female who returns today in followup visit with continued low back, right lower extremity pain with paresthesias for which she places pain score at 7/10. She states pain begins in low back, radiates down the right leg started in 02/2018, no injury or trauma. It has progressed over the past 3 months. She now describes the pain as burning, constant aching, shooting sensations. Pain is exacerbated with driving in a car, lying down, improves with standing and walking. She has undergone epidural injection under fluoroscopic guidance, 08/2019, and was started on medication management. She originally believed the epidural injection in 08/2019 did not provide much improvement in symptoms, but over the past 6 months, her pain has really begun to intensify and she believes that her symptoms are now back at baseline, so her belief that the epidural injection did not provide much improvement has changed. She returns today to discuss options for treatment. She has denied injury or trauma. She is currently taking gabapentin, but is noticing side effects to the medication. ALLERGIES: No known drug allergies. CURRENT MEDICATIONS: Gabapentin 300 mg b.i.d. SOCIAL HISTORY: The patient denies tobacco use. Denies any IV or illicit drug use. Admits to occasional alcohol beverage. She is in human capital manager. She is working, not receiving workmen's compensation nor is she trying to obtain disability benefits. She is not in litigation in regards to pain. She is unaccompanied at today's visit. IMAGING: There is no new imaging available. PHYSICAL EXAMINATION: VITAL SIGNS: Blood pressure 126/76, pulse 99, respiratory rate 16 and unlabored. The patient is 99% on room air. Height 5 feet 6 inches tall, weight [facility] [address] [place] [address] PAIN MANAGEMENT CONSULTATION Name: CHARLY GILES Room #: REG [facility]#: [id number] Admission: 04/09/21 Attend Phys: Cliff Rucker DO Discharge: Date of : 63 Report #: [id number] 188.8 pounds, BMI calculated 30.5. GENERAL: Well-developed, well-nourished, well-hydrated 55-year-old female appearing stated age. She is in no acute distress. Awake, alert and oriented x 3. Current pain score 7/10. HEENT: Normocephalic, atraumatic. Pupils are round and responsive. The patient is wearing a mask in compliance with COVID-19 regulations. EXTREMITIES: Show no clubbing, no cyanosis and no edema. MUSCULOSKELETAL: Lower extremity strength is symmetrical 5/5. Muscle bulk and tone equal and symmetrical. Intact to light touch from L1 through S2 dermatomes. Seated straight leg raising is negative. She is able to stand from a seated position with minimal pain located over the right buttock area and posterolateral thigh. Ankle clonus negative. Babinski is negative. ASSESSMENT: 1. Symptomatic lumbar radiculopathy. 2. Displacement of lumbar intervertebral disk with radiculopathy. 3. Lumbosacral spondylosis with radiculopathy. 4. Neural foraminal stenosis of lumbar spine. 5. Facet arthropathy, lumbar spine. 6. Chronic intractable pain. PLAN: 1. The patient returns today in followup visit to discuss options for treatment for chronic lumbar radiculopathy involving the right lower extremity. We discussed with the patient the various treatment options, we have available. The following was discussed with the patient today. We discussed physical therapy, stretching exercises and core strengthening as a treatment approach. We discussed adjustments in medication management. She is currently taking gabapentin, but has not been able to escalate the dose with immediate release formulation as it causes sleepiness, disorientation, confusion, mental slowing. She did very well with the Horizant which is a long-acting form of gabapentin, but is unable to obtain that medication as it is not covered by the insurance. We trialed the patient on Gralise but again insurance did not cover this long-acting form of gabapentin. We also discussed with the patient other treatment options in the medications area including amitriptyline, nortriptyline, Cymbalta and Lyrica and she wishes to discuss that today. We discussed epidural injection under fluoroscopic guidance as a possible treatment option given the fact that she has now believed she has experienced pretty good pain relief with the first injection and she has had recurrence of pain about 6 months ago that began spontaneously back to her baseline level. We also discussed surgical options with the patient including a spinal dorsal column stimulator or possibly decompression through traditional surgery. After reviewing risks and benefits of all proposed treatment options, the patient chose to make adjustments in medication management initially and consider a lumbar epidural injection if necessary. [facility] [address] [place] [address] PAIN MANAGEMENT CONSULTATION Name: CHARLY GILES Room #: REG [facility] Siddharth.#: [id number] Admission: 04/09/21 Attend Phys: Cliff Rucker DO Discharge: Date of : 63 Report #: [id number] 2. We will start the patient on Lyrica 50 mg dose 1 tab p.o. at bedtime. She will discontinue all gabapentin therapy at this time. She will continue the Lyrica for 7 days if no side effects including sleepiness, disorientation, confusion, mental slowing and no improvement in symptoms, then escalate the dose to 100 mg p.o. at bedtime. Continue for another seven nights. If no improvement in symptoms, no side effects, then increase to 150 mg or 3 tabs p.o. at bedtime, I have given the patient, #90 tablets to release today. The patient will titrate for an effect. If she notes improvement in symptoms at any other time during dosing, she is to stabilize at that dose, no further escalation. If she is having significant side effects, contact our clinic. 3. If there is any precertification processes, we will begin those today in regards to a possible epidural injection. She is considering this as an option for treatment. We will be available to see her back if she wishes to undergo that procedure. DO YASEMIN Miranda/GEORGETTE <ELECTRONICALLY SIGNED> By: Cliff Rucker DO 04/10/21 0822 [id number] Cliff Rucker DO /nt
== END ==
LOC: PAIN 10:31
PROVIDERS: ATTEND Anesthesiology Pain Medicine
DX: M47.27 Other spondylosis with radiculopathy, lumbosacral region (principal); M51.16 Intervertebral disc disorders with radiculopathy, lumbar region; M48.061 Spinal stenosis, lumbar region without neurogenic claudication; G89.4 Chronic pain syndrome; M79.661 Pain in right lower leg; R20.2 Paresthesia of skin; Z79.891 Long term (current) use of opiate analgesic; Z79.899 Other long term (current) drug therapy

== ENCOUNTER → 2021-09-03 | Outpatient (CLI) | payer BC, OTHER ==
[~2021-09-03] VITALS: Ht 167.6 cm; Wt 85.6 kg
[~2021-09-03] MED LIST changes: +SUPER THERAVIT1 EACH PO
[2021-09-03 13:54] VITALS: BP 107/64
--- NOTE | 2021-09-03 14:05 | NUR ---
Pain Clinic Assessment: 1. History of Osteoarthritis: SPINE History of Rheumatoid Arthritis: Not Applicable 2. Height: 5 ft. 6 in. 167.6 cm. Weight: 188.8 lb. oz. 85.639 kg. Patient's BMI: 30.5 3. Vital Signs: BP: 107/64 Pulse: 86 Resp: 16 Temp: 02 Sat: 98 ECG Mon: 4. Pain Intensity: 7 5. Fall Risk: Dizziness: N Needs help standing or walking: N Fallen in the last 3 months: N Fall risk comments: 6. Patient on Blood Thinner: None 7. History of Hypertension: N 8. Opioid Therapy greater than 6 weeks: N Opiate Contract Signed: 9. Risk Assessment Tool Provided: 0-low 10. Functional Assessment Tool: 11. Recreational Drug Use: Never Drug Type: Tobacco Use: Never Smoker Tobacco Type: Amount or Packs/day: How Many Years: Alcohol Use: Yes Frequency: Quant:
--- NOTE | 2021-09-04 08:05 | HPC ---
[facility] [place] [address] PAIN MANAGEMENT CONSULTATION Name: CHARLY GILES Room #: REG ISABEL Ryder#: [id number] Admission: 09/03/21 Attend Phys: Cliff Rucker DO Discharge: Date of : 63 Report #: [id number] THIS REPORT FOR: cc: Tanja Marley DNP, Mary E. DNP Johnson, James E. DO ~ cc: SAHIL Salinas DATE OF SERVICE: 09/03/2021 CHIEF COMPLAINT: Low back pain, right lower extremity pain with paresthesias. HISTORY OF PRESENT ILLNESS: As you know, the patient is a very pleasant 56-year-old female who returns today in followup visit with recurrent lumbar radicular symptoms with pain radiating from the right low back to the buttock and down the leg all the way to the great toe consistent with an L5 dermatomal distribution. The patient states her pain is chronic in nature, shooting electrical numbness and tingling when describing symptoms. Pain is exacerbated with late hours of the evening and lying down. Nothing has alleviated symptoms today. She returns today in followup visit to undergo lumbar epidural injection under fluoroscopic guidance. The patient was trialled with epidural injections in the past, but did not remember whether or not the symptoms were alleviated to any great degree. In retrospect, the patient states that she believes the symptoms were well controlled and now returns requesting a second in the series. We have tried the patient on medications, but this did not provide the patient good analgesic benefit and did lead to some dysphoric effects. She returns today in followup visit requesting a lumbar epidural injection under fluoroscopic guidance to address pain for which she places symptoms at 7/10. ALLERGIES: No known drug allergies. CURRENT MEDICATIONS: Multivitamin 1 tab per day, Lyrica 50 mg p.o. at bedtime. SOCIAL HISTORY: The patient denies tobacco use. Denies IV or illicit drug use. Admits to occasional alcohol beverage. She is employed in human resources working, not receiving Workmen's Compensation, unaccompanied today. IMAGING: No new imaging available. PHYSICAL EXAMINATION: VITAL SIGNS: Blood pressure 107/64, pulse 86, respiratory rate 16 and unlabored. The patient is 98% on room air. Height 5 feet 6 inches tall, weight 188.8 pounds, BMI calculated 30.5. GENERAL: Well-developed, well-nourished, well-hydrated 56-year-old female appearing stated age, pain is rated today 7/10. HEENT: Normocephalic, atraumatic. Pupils equal, round and responsive. She is wearing a mask in compliance with COVID-19 regulations in hospital policies. [address] [address] PAIN MANAGEMENT CONSULTATION Name: CHANCHARLY Room #: REG CL Ryder#: [id number] Admission: 09/03/21 Attend Phys: Cliff Rucker DO Discharge: Date of : 63 Report #: [id number] EXTREMITIES: Show no clubbing, no cyanosis and no appreciable edema. MUSCULOSKELETAL: Seated straight leg raising negative. Supine straight leg raising is mildly positive on the right. Fabere's test is negative. Modified Gaenslen is positive for axial low back pain. Ankle clonus negative. Babinski is negative. ASSESSMENT: 1. Symptomatic lumbar radiculopathy. 2. Displacement of lumbar intervertebral disk with radiculopathy. 3. Lumbosacral spondylosis with radiculopathy. 4. Neural foraminal stenosis of lumbar spine. 5. Facet arthropathy of the lumbar spine. 6. Chronic intractable pain. PLAN: 1. The patient returns today in followup visit requesting to undergo a lumbar epidural injection under fluoroscopic guidance. The patient and I discussed at length the risks and the benefits of this procedure. These risks include but are not necessarily limited to bleeding, bruising, infection, worsening pain, no relief of pain, also risk of temporary or permanent muscle weakness, temporary or permanent nerve damage, possible paralysis, and . The patient states understood and wished to proceed. 2. No medication changes made at today's visit. We recommend the patient continue current medical therapy as prior prescribed. 3. We will see the patient back in followup visit in 1 month. At that time, review the efficacy of today's lumbar epidural injection and determine next in the series of epidural injections might be necessary. PROCEDURE NOTE DESCRIPTION OF PROCEDURE: L5-S1 right paramedian epidural steroid injection under fluoroscopic guidance. This is the first procedure of the second series that the patient is undergoing. After obtaining written consent, the patient was taken back to the fluoroscopy suite, placed in a prone position with pillow under the abdomen to decrease lumbar lordosis. The skin overlying the lumbosacral area was then prepped and draped in aseptic fashion. The L5-S1 vertebral interspace was then identified by AP fluoroscopy. The skin and subcutaneous tissue overlying the target site of injection was anesthetized with 3 mL 1% lidocaine. A 20-gauge, 3-1/2-inch Tuohy needle was then advanced under fluoroscopic guidance towards the epidural space using a right paramedian approach. The epidural space was identified using loss of resistance to air technique. After negative aspiration for heme or cerebrospinal fluid, a total of 1 mL of [address] [address] PAIN MANAGEMENT CONSULTATION Name: CHARLY GILES Room #: REG [facility]#: [id number] Admission: 09/03/21 Attend Phys: Cliff Rucker DO Discharge: Date of : 63 Report #: [id number] Omnipaque was injected. A lumbar epidurogram was confirmed using both AP and lateral fluoroscopy. After negative aspiration for heme or cerebrospinal fluid, 5 mL of a solution containing 2 mL, 40 mg per mL, 80 mg total triamcinolone along with 3 mL of lidocaine 1% was injected in increments. Contrast spread was noted in the posterior epidural space. The needle was then retracted approximately half way and needle tract flushed with 1 mL of 1% lidocaine. Needle was then removed. There were no apparent sensory or motor deficits in the lower extremity following the procedure. A sterile bandage was placed over the injection site. The heart rate, pulse, oximetry and blood pressure were continuously monitored after the procedure. There were no apparent complications. The patient tolerated the procedure well and was carefully escorted to the recovery room in stable condition. There were no apparent complications. After meeting discharge criteria, the patient was then discharged home. <ELECTRONICALLY SIGNED> By: Cliff Rucker DO 09/04/21 [id number] [id number] Cliff Rucker DO /nt
== END | disposition home or self-care (01) ==
LOC: PAIN 07:45
PROVIDERS: ATTEND Anesthesiology Pain Medicine
DX: M51.16 Intervertebral disc disorders with radiculopathy, lumbar region (principal); M47.27 Other spondylosis with radiculopathy, lumbosacral region; M47.26 Other spondylosis with radiculopathy, lumbar region; M48.061 Spinal stenosis, lumbar region without neurogenic claudication; G89.29 Other chronic pain; Z98.890 Other specified postprocedural states; Z79.899 Other long term (current) drug therapy

== ENCOUNTER → 2021-11-06 | Outpatient (CLI) | payer BC, OTHER ==
[~2021-11-06] VITALS: Ht 167.6 cm; Wt 87.5 kg
[2021-11-06 09:09] VITALS: BP 124/83
--- NOTE | 2021-11-06 09:18 | NUR ---
Pain Clinic Assessment: 1. History of Osteoarthritis: SPINE History of Rheumatoid Arthritis: Not Applicable 2. Height: 5 ft. 6 in. 167.6 cm. Weight: 193.0 lb. oz. 87.544 kg. Patient's BMI: 31.2 3. Vital Signs: BP: 124/83 Pulse: 69 Resp: 18 Temp: 02 Sat: 100 ECG Mon: 4. Pain Intensity: 4 5. Fall Risk: Dizziness: N Needs help standing or walking: N Fallen in the last 3 months: N Fall risk comments: 6. Patient on Blood Thinner: None 7. History of Hypertension: N 8. Opioid Therapy greater than 6 weeks: N Opiate Contract Signed: 9. Risk Assessment Tool Provided: 0-low 10. Functional Assessment Tool: 11. Recreational Drug Use: Never Drug Type: Tobacco Use: Never Smoker Tobacco Type: Amount or Packs/day: How Many Years: Alcohol Use: Yes Frequency: Quant:
--- NOTE | 2021-11-06 14:27 | HPC ---
[facility] [place] [address] PAIN MANAGEMENT CONSULTATION Name: CHARLY GILES [id number] Admission: 11/06/21 Attend Phys: Raven Alves Discharge: Date of : 63 Report #: [id number] THIS REPORT FOR: cc: Tanja Marley DNP, Mary E. DNP Hocker,Raven BOURNE ~ cc: SAHIL Salinas James E. Johnson, DATE OF SERVICE: 11/06/2021 CHIEF COMPLAINT: Low back pain, right lower extremity pain and paresthesias. HISTORY OF PRESENT ILLNESS: As you know, this is a pleasant 56-year-old female who returns to the pain clinic today for renewal of her Lyrica. Today, she is reporting pain score of 4/10, located in her lumbar region that radiates down her left outer aspect of her right leg down to her foot. She describes this pain as a constant and occasionally shooting pain. It is worse later in the day and nothing really alleviates her discomfort. She is thankful for the Lyrica that does decrease it slightly. The patient reports the lumbar epidural steroid injection that Dr. Rucker provided in August was somewhat beneficial after at least a week. She reports that her pain was flared quite significantly for the first week and then slowly decreased. She was thankful for that injection and allowed her to go to [place] to see her new grandbaby and feels that was beneficial during that time. It has slowly decrease back to its normal efficacy and pain as she normally experiences on a daily basis. ALLERGIES: No known drug allergies. CURRENT LIST OF MEDICATIONS: Multivitamin, Lyrica 50 mg b.i.d. PQRS: 1. She has osteoarthritic changes in her spine. Denies rheumatoid arthritis. Height is 5 feet 6 inches, weight is 193. BMI is 31. 2. Vital signs 124/83, pulse is 69, respirations 18, oxygen sat is 100. 3. Pain score is 4/10. 4. Denies dizziness, does not need help walking or standing, has not fallen in the last 3 months. 5. The patient is not on any blood thinners or medications for hypertension. She is not on any opioids. Risk assessment is 0. Functional assessment is 32/70. 6. Recreational drug use, she denies. She is not a smoker and occasionally drinks alcohol. According to the prescription monitoring system, she does fill only Lyrica, filling them in a timely fashion and is due for those medications today. [address] [address] PAIN MANAGEMENT CONSULTATION Name: CHARLY GILES Room #: REG [facility]#: [id number] Admission: 11/06/21 Attend Phys: Raven Alves Discharge: Date of : 63 Report #: [id number] PHYSICAL EXAMINATION: GENERAL: This is alert and orientated, well-developed, well-nourished 56-year-old female who appears her stated age. She shows no signs of overmedication or somnolence. Rating the pain score today at 4/10. HEENT: Normocephalic, atraumatic. Extraocular eye muscles are intact. She is wearing a mask for COVID compliance. EXTREMITIES: No clubbing, no cyanosis, no edema. MUSCULOSKELETAL: Lower extremity strength is symmetrical at 5/5, intact from L1-S2. The pain is located in the lumbar, sacral region that follows the L5-S1 dermatomal distribution on the right. Seated straight leg raising is negative. Lumbar provocation testing does increase her low back pain. Is able to move from the seated to standing position without difficulty. ASSESSMENT: 1. Symptomatic lumbar radiculopathy. 2. Displacement of lumbar intervertebral disk with radiculopathy. 3. Lumbar sacral spondylosis with radiculopathy. 4. Neural foraminal stenosis of lumbar spine. 5. Facet arthroscopy of the lumbar spine. 6. Chronic intractable pain, managed by neuropathic medications. PLAN: 1. We discussed treatment options with the patient today. The patient does find the Lyrica beneficial in helping alleviate some of her discomfort in her leg, especially. She has found benefit of increasing from 1 tablet at bedtime to 2 tablets, 1 at dinner and 1 at bedtime. She denies any significant somnolence from this medication. We will continue her on 60 tablets of 50 mg strength for a total of 6 months. 2. The patient found some benefit from the epidural injection, was able to enjoy her time visiting family. She will consider this in the future again, but feels currently that she is not needing any further injections at this time. 3. The patient will return as needed for medication management. Time spent with patient in consultation, reviewing recent studies and clinical notes and physician reports and correlation of physical findings and medical documentation to determine treatments. 12 minutes Time spent in preparing for appointment reviewing prescription monitoring system reports and reviewing records and proposed treatment options and reviewing current medications 5 min, Time spent with and sending electronical prescriptions with collaborating Dr Rucker and documentation of visit and plan of walt. [address] [address] PAIN MANAGEMENT CONSULTATION Name: JAY GILESCRISTIAN Marroquin Room #: MAGO HALL Ryder#: [id number] Admission: 11/06/21 Attend Phys: Raven Alves Discharge: Date of : 63 Report #: [id number] total time spent with the patient is 22 minutes. <ELECTRONICALLY SIGNED> By: Raven Alves 11/06/21 [id number] [id number] Raven Alves /nt
== END ==
LOC: PAIN 06:57
PROVIDERS: ATTEND Clinical Nurse Specialist Adult Health
DX: M47.26 Other spondylosis with radiculopathy, lumbar region (principal); M51.16 Intervertebral disc disorders with radiculopathy, lumbar region; M48.061 Spinal stenosis, lumbar region without neurogenic claudication; M47.27 Other spondylosis with radiculopathy, lumbosacral region; G89.29 Other chronic pain; M79.604 Pain in right leg